=== PATIENT | female | born 1990 | race Caucasian/White ===

== ENCOUNTER 2020-07-28 09:06 | Emergency (ER) | payer OTHER, SELFPAY ==
[2020-07-28 09:18] VITALS: BP 122/76; PULSE 83; RESP 16; TEMP 36.9; O2SAT 100
--- NOTE | 2020-07-28 09:33 | ED.SKABFB ---
HPI - Skin/Abscess/Foreign Bdy General Chief complaint: Skin/Abscess/Foreign Body Stated complaint: Eye Swelling Time Seen by Provider: 07/28/20 09:33 Source: patient and RN notes reviewed Mode of arrival: ambulatory Limitations: no limitations History of Present Illness HPI narrative: 29 year old female who presents to [facility] with complaints of noting pimple like lesion to her right upper cheek yesterday. Today patient states that she has noted the area increasing in size with increase redness and noted swelling to area under her right eye. Patient states that she has not noted any drainage from area, has not pushed or squeezed area, denies any known fevers chills or sweats.She states that she has had a history of staph infection in the past. Patient denies any visual difficulty. MD complaint: abscess/boil Onset (ago): day(s) (1) Tetanus up to date: yes Location: face Severity: mild Severity scale (1-10): 3 Quality: aching Pain Consistency: intermittent Relieving factors: none Exacerbating factors: none Context: other (red lesion right upper cheek) Associated symptoms: other (swelling under right eye) Treatments prior to arrival: other (ice to right cheek) Related Data Allergies Allergy/AdvReac Type Severity Reaction Status Date / Time Penicillins AdvReac Intermediate Itching, Verified 07/28/20 09:27 hive Review of Systems Review of Systems: Narrative: CONSTITUTIONAL: Denies fever, chills, or sweats. EYES: Denies visual changes, redness, or discharge.swelling under right eye ENT: Denies rhinorrhea, congestion, sore throat, or otalgia.positive for red firm lesion on right upper cheek CARDIOVASCULAR: Denies chest pain, palpitations, or edema. RESPIRATORY: Denies cough or dyspnea. GASTROINTESTINAL: Denies abdominal pain, nausea, vomiting, or diarrhea. GENITOURINARY: Denies dysuria or hematuria. SKIN: Denies rash or itching.Positive for red raised firm lesion to right upper cheek. MUSCULOSKELETAL: Denies back pain, joint pain, or myalgia. NEUROLOGIC: Denies headache, numbness, or weakness. PSYCHIATRIC: Denies anxiety or depression. All systems reviewed & are unremarkable except as noted in HPI and below PMFSH Past Medical History Medical History (Updated 07/28/20 @ 09:47 by Gwendolyn Moscsoo NP) History of staph infection Surgical History Surgical History (Updated 07/28/20 @ 09:47 by Gwendolyn Moscoso NP) H/O: hysterectomy History of tubal ligation Hx of tonsillectomy [place] teeth extracted Family History Family History (Updated 07/28/20 @ 09:48 by Gwendolyn Moscoso NP) Other Hypertension Social History Social History (Updated 07/28/20 @ 09:47 by Gwendolyn Moscoso NP) Smoking status: Never smoker Alcohol intake: current Substance use: never Living arrangements: with family Gender identity (if verbalized by the patient): Female Comments At time of signature, agree with nursing past medical, surgical, social and family history. There is no relevant family history pertinent to the presenting complaint Exam Narrative: Exam Narrative: GENERAL: Well-appearing, well-nourished, and in no acute distress. HEAD: Normocephalic, atraumatic. EYES: PERRLA and EOMI, red raised firm lesion to right cheek with swelling under right eye ENT: Nares clear, no rhinorrhea or epistaxis. Mucous membranes moist.TM's normal with good light reflex, throat pink with no exudates or lesions NECK: Supple.no lymphadenopathy CHEST: Clear to auscultation. No respiratory distress.SAO2 100% on room air HEART: Regular rate and rhythm. No murmur heard. Normal peripheral pulses. ABDOMEN: Soft, nontender, nondistended, normal active bowel sounds. EXTREMITIES: Normal range of motion. No edema. SKIN: Warm, dry, 0.5cm raised red firm lesion to outer aspect of her right cheek.no itching NEURO: No focal deficits. Alert and oriented x3. Course Vital Signs Vital signs: Vital Signs Temperature 36.9 C 07/28/20 09:18 Pul
== END 2020-07-28 09:45 | disposition home or self-care (01) ==
PROVIDERS: Emergency Provider Registered Nurse
DX: L02.01 Cutaneous abscess of face (principal); Z86.19 Personal history of other infectious and parasitic diseases
CPT/HCPCS: 99203; G0463

== ENCOUNTER 2021-11-21 10:47 | Emergency (ER) | payer OTHER, SELFPAY ==
[2021-11-21 10:59] VITALS: BP 116/78; PULSE 87; RESP 16; TEMP 37.1; O2SAT 100
[2021-11-21 11:27] VITALS: BP 107/60; BP 111/72; BP 113/73; PULSE 73; PULSE 89; PULSE 91
--- NOTE | 2021-11-21 11:28 | ED.DIZZY ---
HPI - Dizziness General Chief Complaint: Dizziness Stated Complaint: dizzy, light headed Time Seen by Provider: 11/21/21 11:25 Source: patient Mode of arrival: ambulatory Limitations: no limitations History of Present Illness HPI Narrative: Ms. Kothari is a 31-year-old female patient presenting to the clinic today with complaints of dizziness x2 days. Reports that she had the same symptoms 2 years ago and had an inner ear infection. She reports that the room is spinning when she is changing positions. Denies any nausea or vomiting. She denies any fever or chills. She denies any shortness of breath, heart murmur, or chest pain MD elicited complaint: dizziness, lightheadedness, vertigo and disequilibrium Related Data Allergies Allergy/AdvReac Type Severity Reaction Status Date / Time Penicillins AdvReac Intermediate Itching, Verified 11/21/21 11:08 hive Review of Systems Review of Systems: Pertinent positives per HPI. Patient denies any fever, chills, rash, headache, visual changes, cough, runny nose, sore throat, shortness of breath, chest pain, palpitations, nausea, vomiting, diarrhea, constipation, abdominal pain, or any urinary issues. [facility] Past Medical History Medical History History of staph infection Surgical History Surgical History H/O: hysterectomy History of tubal ligation Hx of tonsillectomy [place] teeth extracted Family History Family History Other Hypertension Social History Social History Smoking status: Never smoker Alcohol intake: current Substance use: never Gender identity (if verbalized by the patient): Female Comments At the time of my signature, I reviewed and agree with the nursing past medical, surgical, social, and family history. There is no relevant family history pertinent to the patient complaint. Exam Narrative: General: Well-developed, well nourished, in no apparent distress Head: Normocephalic, atraumatic Eyes: Pupils equally round and reactive to light bilaterally, EOM intact, sclera and conjunctive clear, no discharge, no nystagmus, lids normal Ears: TMs intact, mild bulging, dull, fluid behind TMs, ear canals clear, no drainage, grossly hearing normal. Nose: Nares patent, clear discharge, no inflammation, no sinus tenderness. Mouth: Oropharynx without lesions or masses, good dentition, MMM. Neck: Supple, trachea midline, no enlargement of anterior or posterior cervical nodes, no thyroid masses or goiter palpable. Cardio: Regular rate and rhythm, s1 and s2 normal, no murmur appreciated. Resp: Clear to auscultation bilaterally anteriorly and posteriorly, no rhonchi, rales, wheezing or rubs Neuro: Cranial nerves I through XII intact, muscle strength strong and equal, normal steady gait, Romberg test negative Course Course Emergency Course: Portions of this record may have been created with voice recognition software. Level of Care: Express Care Visit Vital Signs Vital signs: Vital Signs Temperature 37.1 C 11/21/21 10:59 Pulse Rate 87 11/21/21 10:59 Respiratory Rate 16 11/21/21 10:59 Blood Pressure 116/78 11/21/21 10:59 Pulse Oximetry 100 11/21/21 10:59 Temperature 37.1 C 11/21/21 10:59 Pulse Rate 87 11/21/21 10:59 Respiratory Rate 16 11/21/21 10:59 Blood Pressure 116/78 11/21/21 10:59 Pulse Oximetry 100 11/21/21 10:59 Vital signs reviewed MDM - Dizziness MDM Narrative Medical decision making narrative: The time of assessment patient is resting comfortably on the exam table. Reports that when she changes positions such as putting her head down or laying flat and sitting up that she becomes dizzy as the room starts to spin. Testing for BPPV completed and was negative f
== END 2021-11-21 11:37 | disposition home or self-care (01) ==
PROVIDERS: Emergency Provider Nurse Practitioner Family
DX: R42 Dizziness and giddiness (principal); H65.03 Acute serous otitis media, bilateral; Z86.19 Personal history of other infectious and parasitic diseases
CPT/HCPCS: 99213; G0463